=== PATIENT | male | born 1970 | race Caucasian/White ===

== ENCOUNTER 2018-10-03 09:03 | Emergency (ER) | payer SELFPAY ==
[~2018-10-03] VITALS: Ht 170.2 cm; Wt 61.4 kg
[~2018-10-03 09:03] MED LIST: FLEXERIL 1010 MG/TAB PO; MEDROL 4MG DOSPA4 MG PO; NO HOME MEDICATIONS; NORCO 325 MG-51 TAB PO; OCUFLOX OPHTH DR5 ML OU
[2018-10-03 09:19] VITALS: BP 151/90; TEMP 97.9
[2018-10-03 09:57] VITALS: PULSE 80
== END 2018-10-03 09:57 | disposition home or self-care (01) ==
LOC: COL.ER 09:03
DX: K43.9 Ventral hernia without obstruction or gangrene (principal)

== ENCOUNTER 2018-11-20 22:46 | Emergency (ER) | payer SELFPAY ==
[~2018-11-20] VITALS: Ht 172.7 cm; Wt 63.6 kg
[2018-11-20 23:01] VITALS: BP 154/95; TEMP 97.2
[2018-11-21] MEDS ORDERED: FLEXERIL 1010 MG/TAB PO (00:43)
[2018-11-21] MEDS ORDERED: PREDNISONE20 MG PO (00:43)
[2018-11-21 01:00] VITALS: PULSE 94
== END 2018-11-21 01:00 | disposition home or self-care (01) ==
LOC: COL.ER 22:46
DX: M25.551 Pain in right hip (principal); F17.210 Nicotine dependence, cigarettes, uncomplicated
CPT/HCPCS: J1170; J7512

== ENCOUNTER 2019-03-11 11:04 | Emergency (ER) | payer SELFPAY ==
[~2019-03-11] VITALS: Ht 172.7 cm; Wt 61.4 kg
[~2019-03-11 11:04] MED LIST changes: +PREDNISONE20 MG PO
[2019-03-11 11:07] VITALS: TEMP 98.6
[2019-03-11 11:47] LABS: BASO # 0.1 (0.0-0.2); BASO % 0.8 % (0.0-2.0); EOS # 0.2 (0.0-0.7); EOS % 2.5 % (0-4.0); GRAN # 4.6 (1.4-6.5); GRAN % 57.7 % (42.2-75.2); HEMOGLOBIN 16.7 g/dl (13.5-18.0); LYMPH # 2.4 (1.2-3.4); LYMPH % 30.2 % (20.0-51.0); MEAN CELL VOLUME 95 fl (80.0-100.0); MEAN CORPUSCULAR HEMOGLOBIN 32 pg (27.0-31.0); MEAN CORPUSCULAR HGB CONC 33 g/dl (33.0-37.0); MEAN PLATELET VOLUME 10.2 fl (7.4-10.4); MONO # 0.7 (0.1-0.6); MONO % 8.7 % (1.7-9.3); PLATELET COUNT 270 K/mm3 (130-400); RED BLOOD COUNT 5.25 M/mm3 (4.20-5.60); REDCELL DISTRIBUTION WIDTH-CV 13.2 % (11.5-14.5)
[2019-03-11 11:52] LABS: ALBUMIN 4.3 gm/dL (3.5-5.0); BILIRUBIN,TOTAL 0.8 mg/dL (0.0-1.0); CREATININE, serum 0.99 (0.66-1.25); POTASSIUM 4.3 mmol/L (3.4-5.0)
[2019-03-11 12:23] LABS: THYROID STIMULATING HORMONE 2.37 uIU/mL (0.465-4.680)
[2019-03-11 12:59] VITALS: BP 121/95; PULSE 71
== END 2019-03-11 13:05 | disposition home or self-care (01) ==
LOC: COL.ER 11:04
PROVIDERS: Nurse Practitioner
DX: R20.2 Paresthesia of skin (principal); F20.9 Schizophrenia, unspecified; F17.210 Nicotine dependence, cigarettes, uncomplicated; F12.90 Cannabis use, unspecified, uncomplicated

== ENCOUNTER 2020-07-09 06:24 | Emergency (ER) | payer SELFPAY ==
[~2020-07-09] VITALS: Ht 172.7 cm; Wt 63.6 kg
[2020-07-09 06:23] VITALS: TEMP 97.5
[2020-07-09 07:14] LABS: BASO # 0.1 (0.0-0.2); BASO % 0.9 % (0.0-2.0); EOS # 0.3 (0.0-0.7); EOS % 3.7 % (0-4.0); GRAN % 59.5 % (42.2-75.2); HEMATOCRIT 43.8 % (42.0-52.0); LYMPH # 1.8 (1.2-3.4); LYMPH % 27.3 % (20.0-51.0); MEAN CELL VOLUME 94 fl (80.0-100.0); MEAN CORPUSCULAR HEMOGLOBIN 32 pg (27.0-31.0); MEAN CORPUSCULAR HGB CONC 34 g/dl (33.0-37.0); MEAN PLATELET VOLUME 9.9 fl (7.4-10.4); MONO # 0.6 (0.1-0.6); MONO % 8.5 % (1.7-9.3); PLATELET COUNT 236 K/mm3 (130-400); RED BLOOD COUNT 4.68 M/mm3 (4.20-5.60)
[2020-07-09 07:24] LABS: ALANINE AMINOTRANSFERASE 25 U/L (4-49); ALBUMIN 4.4 gm/dL (3.5-5.0); ALKALINE PHOSPHATASE 80 U/L (50-136); ANION GAP 8 mmol/L (7-16); AST,SGOT 31 U/L (15-37); BILIRUBIN,TOTAL 0.8 mg/dL (0.0-1.0); BLOOD UREA NITROGEN 16 mg/dL (9-20); CALCIUM 9.5 mg/dL (8.4-10.2); CARBON DIOXIDE 26 mmol/L (22-30); CHLORIDE 105 mmol/L (98-107); CREATINE KINASE 84 U/L (55-170); CREATININE, serum 0.92 (0.66-1.25); GLUCOSE 120 mg/dL (74-106); LIPASE 77 U/L (23-300); POTASSIUM 4.3 mmol/L (3.4-5.0); SODIUM 139 mmol/L (137-145); TOTAL PROTEIN 7.5 gm/dL (6.4-8.2)
[2020-07-09 07:40] LABS: PROTHROMBIN TIME 11.5 SECONDS (9.7-12.8)
[2020-07-09 07:42] LABS: TROPONIN-I < 0.012 ng/mL (0.000-0.035)
[2020-07-09 11:24] VITALS: BP 151/90; PULSE 80
[2020-07-10] MEDS ORDERED: ATARAX 25MG25 MG/TAB PO (06:05)
== END 2020-07-09 11:24 | disposition home or self-care (01) ==
LOC: COL.ER 06:24
PROVIDERS: Emergency Medicine
DX: R00.2 Palpitations (principal); F17.210 Nicotine dependence, cigarettes, uncomplicated
CPT/HCPCS: J2060; J7030

== ENCOUNTER 2020-07-10 03:08 | Emergency (ER) | payer SELFPAY ==
[~2020-07-10] VITALS: Ht 172.7 cm; Wt 63.6 kg
[2020-07-10 03:11] VITALS: TEMP 97.8
[2020-07-10 04:53] LABS: ANION GAP 7 mmol/L (7-16); BLOOD UREA NITROGEN 15 mg/dL (9-20); CALCIUM 9.3 mg/dL (8.4-10.2); CARBON DIOXIDE 26 mmol/L (22-30); CHLORIDE 106 mmol/L (98-107); CREATININE, serum 0.82 (0.66-1.25); GLUCOSE 115 mg/dL (74-106); MAGNESIUM 1.9 mg/dL (1.6-2.3); POTASSIUM 4.4 mmol/L (3.4-5.0); SODIUM 140 mmol/L (137-145)
[2020-07-10 05:12] LABS: TROPONIN-I < 0.012 ng/mL (0.000-0.035)
[2020-07-10] MEDS ORDERED: ATARAX 25MG25 MG/TAB PO (06:05)
[2020-07-10 06:15] VITALS: BP 153/90; PULSE 80
== END 2020-07-10 06:18 | disposition home or self-care (01) ==
LOC: COL.ER 03:08
PROVIDERS: Emergency Medicine
DX: R00.2 Palpitations (principal); F17.210 Nicotine dependence, cigarettes, uncomplicated

== ENCOUNTER 2020-07-13 02:07 | Emergency (ER) | payer SELFPAY ==
[~2020-07-13] VITALS: Ht 172.7 cm; Wt 63.6 kg
[~2020-07-13 02:07] MED LIST changes: +ATARAX 25MG25 MG/TAB PO
[2020-07-13 02:10] VITALS: TEMP 97.7
[2020-07-13] MEDS ORDERED: ASPIRIN 32325 MG/TAB PO (02:19)
[2020-07-13 02:33] LABS: BASO # 0.1 (0.0-0.2); BASO % 0.5 % (0.0-2.0); EOS # 0.2 (0.0-0.7); GRAN # 5.6 (1.4-6.5); GRAN % 57.9 % (42.2-75.2); HEMATOCRIT 45.8 % (42.0-52.0); HEMOGLOBIN 15.8 g/dl (13.5-18.0); LYMPH # 3.2 (1.2-3.4); LYMPH % 32.5 % (20.0-51.0); MEAN CELL VOLUME 94 fl (80.0-100.0); MEAN CORPUSCULAR HEMOGLOBIN 32 pg (27.0-31.0); MEAN CORPUSCULAR HGB CONC 35 g/dl (33.0-37.0); MEAN PLATELET VOLUME 10.3 fl (7.4-10.4); MONO # 0.7 (0.1-0.6); MONO % 6.9 % (1.7-9.3); PLATELET COUNT 223 K/mm3 (130-400); REDCELL DISTRIBUTION WIDTH-CV 12.8 % (11.5-14.5)
[2020-07-13 02:44] LABS: ALANINE AMINOTRANSFERASE 26 U/L (4-49); ALBUMIN 4.8 gm/dL (3.5-5.0); ALKALINE PHOSPHATASE 81 U/L (50-136); ANION GAP 11 mmol/L (7-16); AST,SGOT 28 U/L (15-37); BILIRUBIN,TOTAL 0.6 mg/dL (0.0-1.0); BLOOD UREA NITROGEN 26 mg/dL (9-20); CALCIUM 9.9 mg/dL (8.4-10.2); CARBON DIOXIDE 23 mmol/L (22-30); CHLORIDE 106 mmol/L (98-107); CREATININE, serum 0.94 (0.66-1.25); GLUCOSE 107 mg/dL (74-106); MAGNESIUM 1.9 mg/dL (1.6-2.3); POTASSIUM 4.2 mmol/L (3.4-5.0); SODIUM 140 mmol/L (137-145); TOTAL PROTEIN 8.3 gm/dL (6.4-8.2)
[2020-07-13 02:55] LABS: TROPONIN-I < 0.012 ng/mL (0.000-0.035)
[2020-07-13 02:58] LABS: COLLECTION METHOD CLEAN CATCH
[2020-07-13 03:04] LABS: PH 5 (5-8); SQUAMOUS EPITHELIAL None Seen /hpf; URINE APPEARANCE Clear; URINE BACTERIA None Seen /hpf; URINE BILIRUBIN Negative (NEGATIVE); URINE BLOOD Negative (NEGATIVE); URINE COLOR Straw; URINE GLUCOSE Negative (NEGATIVE); URINE KETONE Negative (NEGATIVE); URINE LEUKOCYTE ESTERASE Negative (NEGATIVE); URINE NITRATE Negative (NEGATIVE); URINE PROTEIN(semi-quant) Negative (NEGATIVE); URINE RBC None Seen /hpf; URINE UROBILINOGEN Negative (NEGATIVE)
[2020-07-13 04:36] VITALS: BP 125/82; PULSE 73
[2020-07-15] MEDS ORDERED: ATARAX 25MG25 MG/TAB PO (14:37)
[2020-07-15] MEDS ORDERED: ATIVAN 1MG T1 MG/TAB PO (14:37)
== END 2020-07-13 04:36 | disposition home or self-care (01) ==
LOC: COL.ER 02:07
PROVIDERS: Emergency Medicine
DX: R00.2 Palpitations (principal); R20.2 Paresthesia of skin; F17.210 Nicotine dependence, cigarettes, uncomplicated; Z79.82 Long term (current) use of aspirin
CPT/HCPCS: J2060; J3411; J3475; J7030

== ENCOUNTER 2020-10-30 22:02 | Emergency (ER) | payer SELFPAY ==
[~2020-10-30] VITALS: Ht 172.7 cm; Wt 63.6 kg
[~2020-10-30 22:02] MED LIST changes: +ASPIRIN 32325 MG/TAB PO; +ATIVAN 1MG T1 MG/TAB PO
[2020-10-30 22:10] VITALS: TEMP 97.4
[2020-10-30 22:28] LABS: BASO # 0.1 (0.0-0.2); BASO % 0.5 % (0.0-2.0); EOS # 0.2 (0.0-0.7); EOS % 2.1 % (0-4.0); GRAN # 6.1 (1.4-6.5); GRAN % 63.1 % (42.2-75.2); HEMATOCRIT 41.9 % (42.0-52.0); HEMOGLOBIN 14.2 g/dl (13.5-18.0); LYMPH # 2.5 (1.2-3.4); MEAN CELL VOLUME 91 fl (80.0-100.0); MEAN CORPUSCULAR HEMOGLOBIN 31 pg (27.0-31.0); MEAN CORPUSCULAR HGB CONC 34 g/dl (33.0-37.0); MEAN PLATELET VOLUME 9.8 fl (7.4-10.4); MONO # 0.8 (0.1-0.6); PLATELET COUNT 308 K/mm3 (130-400); RED BLOOD COUNT 4.61 M/mm3 (4.20-5.60); REDCELL DISTRIBUTION WIDTH-CV 12.8 % (11.5-14.5)
[2020-10-30 22:31] LABS: PROTHROMBIN TIME 11.1 SECONDS (9.7-12.8)
[2020-10-30 22:34] LABS: ALANINE AMINOTRANSFERASE 47 U/L (4-49); ALBUMIN 4.6 gm/dL (3.5-5.0); ALKALINE PHOSPHATASE 78 U/L (50-136); ANION GAP 11 mmol/L (7-16); AST,SGOT 33 U/L (15-37); BILIRUBIN,TOTAL 0.6 mg/dL (0.0-1.0); BLOOD UREA NITROGEN 21 mg/dL (9-20); CALCIUM 9.6 mg/dL (8.4-10.2); CARBON DIOXIDE 24 mmol/L (22-30); CHLORIDE 108 mmol/L (98-107); CREATINE KINASE 79 U/L (55-170); CREATININE, serum 0.96 (0.66-1.25); GLUCOSE 106 mg/dL (74-106); PARTIAL THROMBOPLASTIN TIME 28.7 SECONDS (26.0-37.0); POTASSIUM 4.1 mmol/L (3.4-5.0); SODIUM 142 mmol/L (137-145); TOTAL PROTEIN 7.9 gm/dL (6.4-8.2)
[2020-10-30 22:36] LABS: D-DIMER < 200.00 ng/mLDDu (200-230)
[2020-10-30 22:46] LABS: TROPONIN-I < 0.012 ng/mL (0.000-0.035)
[2020-10-30 23:17] LABS: COLLECTION METHOD CLEAN CATCH
[2020-10-30 23:22] LABS: PH 5 (5-8); SQUAMOUS EPITHELIAL None Seen /hpf; URINE APPEARANCE Clear; URINE BACTERIA None Seen /hpf; URINE BILIRUBIN Negative (NEGATIVE); URINE BLOOD Negative (NEGATIVE); URINE COLOR Yellow; URINE GLUCOSE Negative (NEGATIVE); URINE KETONE Negative (NEGATIVE); URINE LEUKOCYTE ESTERASE Negative (NEGATIVE); URINE NITRATE Negative (NEGATIVE); URINE PROTEIN(semi-quant) Negative (NEGATIVE); URINE RBC 0-2 /hpf; URINE UROBILINOGEN Negative (NEGATIVE); URINE WBC 0-2 /hpf
[2020-10-30 23:29] LABS: TRICYCLIC ANTIDEPRESS URINE NEGATIVE
[2020-10-31 02:23] VITALS: BP 107/70; PULSE 78
== END 2020-10-31 02:23 | disposition home or self-care (01) ==
LOC: COL.ER 22:02
PROVIDERS: Emergency Medicine
DX: R07.9 Chest pain, unspecified (principal); R00.2 Palpitations; R94.31 Abnormal electrocardiogram [ECG] [EKG]; F41.9 Anxiety disorder, unspecified; F17.210 Nicotine dependence, cigarettes, uncomplicated; Z20.822 Contact with and (suspected) exposure to COVID-19; Z79.82 Long term (current) use of aspirin
CPT/HCPCS: J7030

== ENCOUNTER 2021-08-06 17:00 | Emergency (ER) | payer SELFPAY ==
[~2021-08-06] VITALS: Ht 170.2 cm; Wt 68.2 kg
[2021-08-06 18:48] LABS: BASO # 0.1 K/mm3 (0.0-0.2); BASO % 0.7 % (0.0-2.0); EOS # 0.1 K/mm3 (0.0-0.7); EOS % 1.3 % (0-4.0); GRAN # 6.8 K/mm3 (1.4-6.5); HEMATOCRIT 42.9 % (42.0-52.0); HEMOGLOBIN 14.8 g/dl (13.5-18.0); LYMPH # 2.8 K/mm3 (1.2-3.4); LYMPH % 27.1 % (20.0-51.0); MEAN CELL VOLUME 91 fl (80.0-100.0); MEAN CORPUSCULAR HEMOGLOBIN 32 pg (27.0-31.0); MEAN CORPUSCULAR HGB CONC 35 g/dl (33.0-37.0); MEAN PLATELET VOLUME 10.7 fl (7.4-10.4); MONO # 0.6 K/mm3 (0.1-0.6); MONO % 5.7 % (1.7-9.3); PLATELET COUNT 288 K/mm3 (130-400); REDCELL DISTRIBUTION WIDTH-CV 12.8 % (11.5-14.5)
[2021-08-06 18:55] LABS: ALANINE AMINOTRANSFERASE 28 U/L (0-55); ALKALINE PHOSPHATASE 67 U/L (40-150); ANION GAP 14 mmol/L (7-16); AST,SGOT 23 U/L (5-34); BILIRUBIN,TOTAL 0.6 mg/dL (0.2-1.2); BLOOD UREA NITROGEN 15 mg/dL (8-26); CALCIUM 9.4 mg/dL (8.4-10.2); CARBON DIOXIDE 20 mmol/L (22-29); CHLORIDE 107 mmol/L (98-107); CREATININE, serum 0.92 mg/dL (0.72-1.25); GLUCOSE 100 mg/dL (70-99); POTASSIUM 3.8 mmol/L (3.5-4.5); SODIUM 141 mmol/L (136-145); TOTAL PROTEIN 7.8 gm/dL (6.2-8.1)
[2021-08-06 19:07] LABS: TROPONIN-I < 0.010 ng/mL (0.00-0.033)
[2021-08-06 20:15] VITALS: BP 138/92; PULSE 66; TEMP 98.5
== END 2021-08-06 20:15 | disposition home or self-care (01) ==
LOC: COL.ER 17:00
PROVIDERS: Personal Emergency Response Attendant
DX: R07.2 Precordial pain (principal); F17.200 Nicotine dependence, unspecified, uncomplicated
CPT/HCPCS: J2270; J2405

== ENCOUNTER 2021-08-14 18:44 | Emergency (ER) | payer SELFPAY ==
[~2021-08-14] VITALS: Ht 170.2 cm; Wt 68.2 kg
[2021-08-14 19:00] LABS: BASO # 0.1 K/mm3 (0.0-0.2); BASO % 0.6 % (0.0-2.0); EOS # 0.1 K/mm3 (0.0-0.7); GRAN # 7.1 K/mm3 (1.4-6.5); GRAN % 63.1 % (42.2-75.2); HEMATOCRIT 41.6 % (42.0-52.0); HEMOGLOBIN 14.7 g/dl (13.5-18.0); LYMPH % 26.7 % (20.0-51.0); MEAN CELL VOLUME 90 fl (80.0-100.0); MEAN CORPUSCULAR HEMOGLOBIN 32 pg (27.0-31.0); MEAN CORPUSCULAR HGB CONC 35 g/dl (33.0-37.0); MEAN PLATELET VOLUME 10.1 fl (7.4-10.4); MONO # 0.9 K/mm3 (0.1-0.6); MONO % 8.3 % (1.7-9.3); PLATELET COUNT 285 K/mm3 (130-400); RED BLOOD COUNT 4.62 M/mm3 (4.20-5.60); REDCELL DISTRIBUTION WIDTH-CV 12.7 % (11.5-14.5)
[2021-08-14 19:48] LABS: ALANINE AMINOTRANSFERASE 18 U/L (0-55); ALBUMIN 3.7 gm/dL (3.5-5.0); ALKALINE PHOSPHATASE 69 U/L (40-150); ANION GAP 14 mmol/L (7-16); AST,SGOT 17 U/L (5-34); BILIRUBIN,TOTAL 0.5 mg/dL (0.2-1.2); BLOOD UREA NITROGEN 14 mg/dL (8-26); CALCIUM 9.1 mg/dL (8.4-10.2); CARBON DIOXIDE 18 mmol/L (22-29); CHLORIDE 109 mmol/L (98-107); CREATININE, serum 0.97 mg/dL (0.72-1.25); GLUCOSE 95 mg/dL (70-99); SODIUM 141 mmol/L (136-145); TOTAL PROTEIN 7.2 gm/dL (6.2-8.1)
[2021-08-14 19:55] LABS: TROPONIN-I < 0.010 ng/mL (0.00-0.033)
[2021-08-14 20:04] LABS: TRICYCLIC ANTIDEPRESS URINE NEGATIVE
[2021-08-14 20:30] LABS: TSH w REFLEX 1.129 uIU/mL (0.350-4.940)
[2021-08-14 22:50] VITALS: BP 127/89; PULSE 74; TEMP 98.2
== END 2021-08-14 22:50 | disposition home or self-care (01) ==
LOC: COL.ER 18:44
PROVIDERS: Emergency Medicine
DX: R07.89 Other chest pain (principal); R51.9 Headache, unspecified; R25.8 Other abnormal involuntary movements; F32.A Depression, unspecified; F41.9 Anxiety disorder, unspecified; F20.9 Schizophrenia, unspecified; F17.200 Nicotine dependence, unspecified, uncomplicated; Z79.899 Other long term (current) drug therapy
CPT/HCPCS: J0780; J1200; J2060; J7030

== ENCOUNTER 2021-11-19 16:56 | Emergency (ER) | payer SELFPAY ==
[~2021-11-19] VITALS: Ht 170.2 cm; Wt 65.9 kg
[2021-11-19 16:56] VITALS: TEMP 99
[2021-11-19 17:45] LABS: BASO % 0.4 % (0.0-2.0); EOS # 0.1 K/mm3 (0.0-0.7); EOS % 0.7 % (0.0-4.0); GRAN # 7.4 K/mm3 (1.4-6.5); GRAN % 65.8 % (42.2-75.2); HEMATOCRIT 43.3 % (42.0-52.0); HEMOGLOBIN 15.1 g/dl (13.5-18.0); LYMPH # 2.8 K/mm3 (1.2-3.4); LYMPH % 25.4 % (20.0-51.0); MEAN CELL VOLUME 90 fl (80.0-100.0); MEAN CORPUSCULAR HEMOGLOBIN 32 pg (27-31); MEAN CORPUSCULAR HGB CONC 35 g/dl (33.0-37.0); MEAN PLATELET VOLUME 10.2 fl (7.4-10.4); MONO # 0.8 K/mm3 (0.1-0.6); MONO % 7.4 % (1.7-9.3); PLATELET COUNT 323 K/mm3 (130-400); REDCELL DISTRIBUTION WIDTH-CV 13.2 % (11.5-14.5)
[2021-11-19 18:10] LABS: ALBUMIN 3.9 gm/dL (3.5-5.0); BILIRUBIN,TOTAL 0.7 mg/dL (0.2-1.2); C-REACTIVE PROTEIN 1.65 mg/dL (0.00-0.50); CALCIUM 8.8 mg/dL (8.4-10.2); CREATININE, serum 0.93 mg/dL (0.72-1.25); TOTAL PROTEIN 7.5 gm/dL (6.2-8.1)
[2021-11-19 19:20] VITALS: BP 104/62; PULSE 75
[2021-11-19] MEDS ORDERED: AMOXICILLIN 8751 TAB PO (19:23)
== END 2021-11-19 20:37 | disposition home or self-care (01) ==
LOC: COL.ER 16:56
PROVIDERS: Nurse Practitioner
DX: J32.9 Chronic sinusitis, unspecified (principal); F41.9 Anxiety disorder, unspecified; F32.A Depression, unspecified; F17.200 Nicotine dependence, unspecified, uncomplicated
CPT/HCPCS: J1200; J1885; J2765; J7030

== ENCOUNTER 2022-03-14 17:12 | Emergency (ER) | payer SELFPAY ==
[~2022-03-14] VITALS: Ht 167.6 cm; Wt 60.9 kg
[~2022-03-14 17:12] MED LIST changes: +AMOXICILLIN 8751 TAB PO
[2022-03-14 17:54] VITALS: BP 133/80
[2022-03-14 18:36] LABS: HEMATOCRIT 41.5 % (42.0-52.0); HEMOGLOBIN 14.6 g/dl (13.5-18.0); MEAN CELL VOLUME 91 fl (80.0-100.0); MEAN CORPUSCULAR HEMOGLOBIN 32 pg (27-31); MEAN CORPUSCULAR HGB CONC 35 g/dl (33.0-37.0); MEAN PLATELET VOLUME 9.9 fl (7.4-10.4); PLATELET COUNT 339 K/mm3 (130-400); RED BLOOD COUNT 4.57 M/mm3 (4.20-5.60); REDCELL DISTRIBUTION WIDTH-CV 13.1 % (11.5-14.5)
[2022-03-14 18:54] LABS: ALBUMIN 3.1 gm/dL (3.5-5.0); BILIRUBIN,TOTAL 0.5 mg/dL (0.2-1.2); C-REACTIVE PROTEIN 10.37 mg/dL (0.00-0.50); CALCIUM 9.4 mg/dL (8.4-10.2); CREATININE, serum 0.88 mg/dL (0.72-1.25); POTASSIUM 4.1 mmol/L (3.5-4.5); TOTAL PROTEIN 7.8 gm/dL (6.2-8.1)
[2022-03-14 19:31] LABS: BAND 1 % (0-10); LYMPHOCYTE 18 % (20.0-51.0); NEUTROPHILS 73 % (42.0-75.2); PLATELET ESTIMATE NORMAL (NORMAL)
[2022-03-14] MEDS ORDERED: PREDNISONE20 MG PO (20:36)
[2022-03-14] MEDS ORDERED: DOXYCYCLINE 10100 MG PO (20:36)
[2022-03-14 21:14] VITALS: PULSE 88; TEMP 98.9
== END 2022-03-14 21:16 | disposition home or self-care (01) ==
LOC: COL.ER 17:12
PROVIDERS: Nurse Practitioner
DX: J20.9 Acute bronchitis, unspecified (principal); H10.9 Unspecified conjunctivitis; F17.290 Nicotine dependence, other tobacco product, uncomplicated; Z20.822 Contact with and (suspected) exposure to COVID-19
CPT/HCPCS: J1885; J7030; J7512

== ENCOUNTER 2022-05-19 00:33 | Emergency (ER) | payer SELFPAY ==
[~2022-05-19] VITALS: Ht 170.2 cm; Wt 63.6 kg
[~2022-05-19 00:33] MED LIST changes: +DOXYCYCLINE 10100 MG PO
[2022-05-19 00:38] VITALS: TEMP 98.7
[2022-05-19 00:51] LABS: HEMATOCRIT 45.3 % (42.0-52.0); HEMOGLOBIN 15.6 g/dl (13.5-18.0); MEAN CELL VOLUME 92 fl (80.0-100.0); MEAN CORPUSCULAR HEMOGLOBIN 32 pg (27-31); MEAN CORPUSCULAR HGB CONC 34 g/dl (33.0-37.0); MEAN PLATELET VOLUME 10.4 fl (7.4-10.4); PLATELET COUNT 294 K/mm3 (130-400); RED BLOOD COUNT 4.91 M/mm3 (4.20-5.60); REDCELL DISTRIBUTION WIDTH-CV 13.2 % (11.5-14.5)
[2022-05-19 01:06] LABS: EOSINOPHIL 3 % (0-4); LYMPHOCYTE 54 % (20.0-51.0); NEUTROPHILS 38 % (42.0-75.2); PLATELET ESTIMATE NORMAL (NORMAL)
[2022-05-19 01:10] LABS: ALANINE AMINOTRANSFERASE 22 U/L (0-55); ALKALINE PHOSPHATASE 83 U/L (40-150); ANION GAP 12 mmol/L (7-16); AST,SGOT 25 U/L (5-34); BILIRUBIN,TOTAL 0.7 mg/dL (0.2-1.2); BLOOD UREA NITROGEN 15 mg/dL (8-26); CALCIUM 9.9 mg/dL (8.4-10.2); CARBON DIOXIDE 24 mmol/L (22-29); CHLORIDE 105 mmol/L (98-107); GLUCOSE 96 mg/dL (70-99); SODIUM 141 mmol/L (136-145); TOTAL PROTEIN 8.4 gm/dL (6.2-8.1)
[2022-05-19 01:27] LABS: TROPONIN-I < 0.010 ng/mL (0.00-0.033)
[2022-05-19 01:45] VITALS: BP 118/80; PULSE 63
== END 2022-05-19 01:46 | disposition home or self-care (01) ==
LOC: COL.ER 00:33
PROVIDERS: Emergency Medicine
DX: R00.2 Palpitations (principal); F41.9 Anxiety disorder, unspecified; Z79.899 Other long term (current) drug therapy

== ENCOUNTER 2022-11-17 16:49 | Emergency (ER) | payer SELFPAY ==
[~2022-11-17] VITALS: Ht 182.9 cm; Wt 90.9 kg
[~2022-11-17 16:49] MED LIST changes: +TAMIFLU 75MG75 MG PO
[2022-11-17 16:53] VITALS: BP 142/101; PULSE 108; TEMP 98
[2022-11-17 17:52] LABS: BASO # 0.1 K/mm3 (0.0-0.2); BASO % 0.7 % (0.0-2.0); EOS # 0.2 K/mm3 (0.0-0.7); EOS % 1.6 % (0.0-4.0); GRAN # 6.1 K/mm3 (1.4-6.5); GRAN % 57.7 % (42.2-75.2); HEMATOCRIT 45.9 % (42.0-52.0); HEMOGLOBIN 15.1 g/dl (13.5-18.0); LYMPH # 3.7 K/mm3 (1.2-3.4); LYMPH % 35.4 % (20.0-51.0); MEAN CELL VOLUME 94 fl (80.0-100.0); MEAN CORPUSCULAR HEMOGLOBIN 31 pg (27-31); MEAN CORPUSCULAR HGB CONC 33 g/dl (33.0-37.0); MONO # 0.5 K/mm3 (0.1-0.6); MONO % 4.3 % (1.7-9.3); PLATELET COUNT 308 K/mm3 (130-400); RED BLOOD COUNT 4.91 M/mm3 (4.20-5.60); REDCELL DISTRIBUTION WIDTH-CV 13.9 % (11.5-14.5)
[2022-11-17 18:22] LABS: ACETAMINOPHEN < 1.0 ug/mL (10-30); ALANINE AMINOTRANSFERASE 15 U/L (0-55); ALBUMIN 3.8 gm/dL (3.5-5.0); ALCOHOL(ethanol),MEDICAL 249 mg/dL (0-10); ALKALINE PHOSPHATASE 89 U/L (40-150); ANION GAP 14 mmol/L (7-16); AST,SGOT 18 U/L (5-34); BILIRUBIN,TOTAL 0.4 mg/dL (0.2-1.2); BLOOD UREA NITROGEN 13 mg/dL (8-26); CALCIUM 9.7 mg/dL (8.4-10.2); CARBON DIOXIDE 20 mmol/L (22-29); CHLORIDE 110 mmol/L (98-107); GLUCOSE 103 mg/dL (70-99); POTASSIUM 3.9 mmol/L (3.5-4.5); SALICYLATE < 5.0 mg/dL (15.0-30.0); SODIUM 144 mmol/L (136-145); TOTAL PROTEIN 8.3 gm/dL (6.2-8.1)
== END 2022-11-17 18:31 | disposition left against medical advice (07) ==
LOC: COL.ER 16:49
PROVIDERS: Nurse Practitioner
DX: R07.9 Chest pain, unspecified (principal); R00.0 Tachycardia, unspecified; F17.200 Nicotine dependence, unspecified, uncomplicated; Z28.310 Unvaccinated for COVID-19
CPT/HCPCS: J7030